=== PATIENT | female | born 1950 | race Caucasian/White ===

== ENCOUNTER 2016-12-11 15:00 | Outpatient (CLI) | payer MEDICARE | END 2016-12-11 15:01 | disposition home or self-care (01) | DX: N39.0 Urinary tract infection, site not specified (principal) ==

== ENCOUNTER 2017-07-06 15:00 | Outpatient (CLI) | payer MEDICARE | END 2017-07-06 15:01 | LOC: LAB.WCP 15:00 | PROVIDERS: ATTEND Family Medicine | DX: N39.0 Urinary tract infection, site not specified (principal) | CPT/HCPCS: 87086 ==

== ENCOUNTER 2017-12-15 18:29 | Outpatient (CLI) | payer MEDICARE | END 2017-12-15 18:30 | disposition critical access hospital (66) | LOC: EMS 18:29 | PROVIDERS: ATTEND Surgery | DX: R06.02 Shortness of breath (principal); R05 Cough; M54.9 Dorsalgia, unspecified | CPT/HCPCS: A0425; A0427 ==

== ENCOUNTER 2017-12-15 18:55 | Emergency (ER) | payer MEDICARE ==
[2017-12-15 19:35] LABS: BASOPHILS # (AUTO) 0.1 10^3/uL (0.0-0.1); BASOPHILS % (AUTO) 0.7 %; EOSINOPHILS # (AUTO) 0.1 10^3/uL (0.0-0.7); EOSINOPHILS % (AUTO) 1.7 %; HGB - HEMOGLOBIN 12.4 g/dL (12.0-16.0); LYMPHOCYTES # (AUTO) 0.9 10^3/uL (1.5-3.5); LYMPHOCYTES % (AUTO) 10.9 %; MEAN CORPUSCULAR HEMOGLOBIN 29.6 pg (27.0-31.0); MEAN CORPUSCULAR HGB CONC 32.2 g/dL (32.0-36.0); MEAN CORPUSCULAR VOLUME 91.9 fL (81.0-99.0); MEAN PLATELET VOLUME 8.6 fL (7.9-10.8); MONOCYTES # (AUTO) 0.5 10^3/uL (0.0-1.0); MONOCYTES % (AUTO) 6.5 %; NEUTROPHILS # (AUTO) 6.8 10^3/uL (1.5-6.6); NEUTROPHILS % (AUTO) 80.2 %; PLT - PLATELET COUNT 233 10^3/uL (130-450); RED CELL DISTRIBUTION WIDTH 14.3 % (12.0-15.0); WHITE BLOOD COUNT 8.5 x10^3/uL (4.8-10.8)
[2017-12-15 19:48] LABS: ALBUMIN 3.5 g/dL (3.2-5.5); ALBUMIN/GLOBULIN RATIO 1.1 (1.0-2.2); BILIRUBIN,TOTAL 1.7 mg/dL (0.2-1.0); CALCIUM 8.5 mg/dL (8.5-10.3); CREATININE 0.7 mg/dL (0.4-1.0); TOTAL PROTEIN 6.7 g/dL (6.7-8.2)
[2017-12-15] MEDS ORDERED: IPRATROPIUM/ALBUTEROL 3 ML NEB INH STA (20:09)
--- NOTE | 2017-12-15 20:40 | XRAY Report ---
EXAM: CHEST RADIOGRAPHY EXAM DATE: 12/15/2017 08:16 PM. CLINICAL HISTORY: Dyspnea. COMPARISON: 12/11/2016. TECHNIQUE: 1 view. FINDINGS: Lungs/Pleura: Mild diffuse hazy prominence of lung markings. No consolidation, effusion, or pneumotho rax. Mediastinum: Mild cardiomegaly, probably unchanged. Diffuse vascular fullness. Other: Permanent pacemaker on the left with intact leads. Osteopenia, degenerative changes. IMPRESSION: Mild congestive failure. [facility] Referring Provider Line: [phone] SITE ID: [id number]
[2017-12-15 21:29] VITALS: BP 116/78
--- NOTE | 2017-12-15 21:31 | ED Physician Documentation ---
PD HPI DYSPNEA - Stated complaint Stated Complaint: SOA - Chief complaint Chief Complaint: Resp - History obtained from History obtained from: Patient, Family - History of Present Illness Timing - onset: Yesterday Timing - onset during: Rest, Light activity Timing - details: Gradual onset, Still present Inciting event(s): URI Improved by: O2 Worsened by: Exertion, Laying flat, Coughing Associated symptoms: Cough, Wheezing. No: Fever Similar symptoms before: Work up / diagnostics Recently seen: Not recently seen - Treatment prior to arrival Treatment prior to arrival: nitro and lasix - Additional information Additional information: Patient is a 67 year old female with copd, who is presenting to the emergency department for shortness of breath. Patient states that she was recently diagnosed with copd after a 100 pack year history of smoking. Patient states that over the last week she has been more short of breath. patient states that the symptoms are worse when she lies flat or with exertion. Patient has not had an echocardiogram but she does have cardiology follow up coming up. Review of Systems Constitutional: denies: Fever, Chills Eyes: reports: Reviewed and negative Ears: reports: Reviewed and negative Nose: reports: Congestion Throat: reports: Reviewed and negative Cardiac: reports: Pedal edema. denies: Chest pain / pressure, Palpitations Respiratory: reports: Dyspnea, Wheezing GI: denies: Nausea, Vomiting Skin: denies: Rash, Lesions Musculoskeletal: reports: Back pain Neurologic: denies: Generalized weakness, Focal weakness Immunocompromised: denies: Immunocompromised PD PAST MEDICAL HISTORY - Past Medical History Past Medical History: Yes Cardiovascular: Hypertension Respiratory: COPD Psych: Depression - Past Surgical History Past Surgical History: Yes Cardiovascular: Pacemaker - Present Medications Home Medications: Ambulatory Orders Medication Instructions Recorded Confirmed Albuterol Sulfate [Proventil Hfa 1 - 2 puffs INH Q4H PRN #1 inhaler 12/15/17 Inhaler] Furosemide [Lasix] 40 mg PO DAILY #15 tablet 12/15/17 Metoprolol Tartrate 12/15/17 Nefazodone HCl 12/15/17 Potassium Chloride 40 meq PO DAILY #60 tablet.er 12/15/17 - Allergies Allergies/Adverse Reactions: Allergies Allergy/AdvReac Type Severity Reaction Status Date / Time tegaderm Allergy Mild Rash Uncoded 12/15/17 19:03 - Social History Does the pt smoke?: Yes Smoking Status: Current every day smoker Does the pt drink ETOH?: No Does the pt have substance abuse?: No - Immunizations Immunizations are current?: Yes PD ED PE NORMAL - General General: Alert and oriented X 3 - HEENT HEENT: Atraumatic - Neck Neck: No JVD - Abdomen Abdomen: Soft - Derm Derm: Normal color - Neuro Neuro: Alert and oriented X 3 PD ED PE EXPANDED - General General: Alert, Disheveled, poorly kept - HEENT HEENT: Dry mucous membranes - Cardiac Cardiac: Regular Rate. No: Murmur Present - Respiratory Respiratory: Wheezing, Rhonchi. No: Gasping, Accessory mm use - Extremities Extremities: Pedal edema bilateral (plus 1) Results - Vitals Vitals: Vital Signs - 24 hr 12/15/17 12/15/17 18:58 21:28 Temperature 36.8 C 36.0 C L Heart Rate 66 73 Respiratory 20 18 Rate Blood Pressure 129/79 116/78 O2 Saturation 91 L 95 Oxygen O2 Source Room air - Labs Labs: Laboratory Tests 12/15/17 12/15/17 12/15/17 19:28 19:28 19:28 WBC 8.5 RBC 4.20 Hgb 12.4 Hct 38.6 MCV 91.9 MCH 29.6 MCHC 32.2 RDW 14.3 Plt Count 233 MPV 8.6 Neut # 6.8 H Lymph # 0.9 L [place] # 0.5 Eos # 0.1 Baso # 0.1 Absolute Nucleated RBC 0.00 Nucleated RBC % 0.0 Sodium 135 Potassium 3.8 Chloride 101 Carbon Dioxide 27 Anion Gap 7.0 BUN 12 Creatinine 0.7 Estimated GFR (MDRD) 84 L Glucose 134 H Calcium 8.5 Total Bilirubin 1.7 H AST 40 ALT 45 Alkaline Phosphatase 84 Troponin I < 0.04 B-Natriuretic Peptide Total Protein 6.7 Albumin 3.5 Globulin 3.2 Albumin/Globulin Ratio 1.1 Lipase 15 L 12/15/17 19:28 WBC RBC Hgb Hct MCV MCH MCHC RDW Plt Count MPV Neut # Lymph # [place] # Eos # Baso # Absolute Nucleated RBC Nucleated RBC % Sodium Potassium Chloride Carbon Dioxide Anion Gap BUN Creatinine Estimated GFR (MDRD) Glucose Calcium Total Bilirubin AST ALT Alkaline Phosphatase Troponin I B-Natriuretic Peptide 536 H Total Protein Albumin Globulin Albumin/Globulin Ratio Lipase - Rads (name of study) chest x-ray Radiology: Final report received (mild pulmonary congestion) PD MEDICAL DECISION MAKING - ED course Complexity details: reviewed old records, reviewed results, re-evaluated patient , considered differential, d/w patient, d/w family ED course: Patient was seen and examined at bedside. IV access was gained and labs were drawn. Patient had already been treated with lasix and nitroglycerin with some improvement. chest x-ray was ordered. patient was treated with duoneb. When patient's diagnostics came back the findings were suggestive of chf. Patient was made aware of the findings and offered admission. patient stated that she would rather go home. Case was discussed with covering hospitalist who recommended lasix 40mg every other day, as well as potassium supplementation. prescriptions were written and patient was stable for discharge with outpatient follow up. Departure - Departure Disposition: Home, Self Care Clinical Impression: Moderate COPD (chronic obstructive pulmonary disease), Congestive heart failure Condition: Stable Instructions: COPD Dc, ED CHF General, Lasix Follow-Up: Tita Bryant MD [Primary Care Provider] - Tomorrow Prescriptions: Albuterol Sulfate [Proventil Hfa Inhaler] 1 - 2 puffs INH Q4H PRN #1 inhaler PRN Reason: Shortness Of Air/Wheezing Furosemide [Lasix] 40 mg PO DAILY #15 tablet Potassium Chloride 40 meq PO DAILY #60 tablet.er Comments: Your symptoms today are being caused by both your copd and it looks like you have congestive heart failure as well. You are being started on lasix that you will take every other day, as well as potassium that you will take every other day as well. it is important that you call your doctor to schedule and echocardiogram. You should also refrain from smoking as it is likely making all of your symptoms worse. You should return to the emergency department for new, worsening or uncontrollable symptoms. Discharge Date/Time: 12/15/17 21:38
== END 2017-12-15 21:38 | disposition home or self-care (01) ==
LOC: EDUNIT# → ED 18:55
DX: J44.9 Chronic obstructive pulmonary disease, unspecified (principal); I11.0 Hypertensive heart disease with heart failure; I50.9 Heart failure, unspecified; Z95.0 Presence of cardiac pacemaker; F32.9 Major depressive disorder, single episode, unspecified; F17.210 Nicotine dependence, cigarettes, uncomplicated
CPT/HCPCS: 36415; 71045; 80053; 83690; 83880; 84484; 85025; 93005; 94640; 99283; 99284

== ENCOUNTER 2017-12-27 14:35 | Outpatient (CLI) | payer MEDICARE ==
[2017-12-27 19:17] LABS: ALBUMIN 3.5 g/dL (3.2-5.5); ALBUMIN/GLOBULIN RATIO 1.1 (1.0-2.2); BILIRUBIN,TOTAL 0.8 mg/dL (0.2-1.0); CALCIUM 8.7 mg/dL (8.5-10.3); CREATININE 0.7 mg/dL (0.4-1.0); TOTAL PROTEIN 6.7 g/dL (6.7-8.2)
== END 2017-12-27 14:36 ==
LOC: LAB.WCP 14:35
PROVIDERS: ATTEND Family Medicine
DX: I50.9 Heart failure, unspecified (principal)
CPT/HCPCS: 36415; 80053; 83880

== ENCOUNTER 2018-02-07 08:00 | Outpatient (CLI) | payer MEDICARE ==
[2018-02-07 12:37] LABS: BASOPHILS # (AUTO) 0.1 10^3/uL (0.0-0.1); BASOPHILS % (AUTO) 0.6 %; EOSINOPHILS # (AUTO) 0.2 10^3/uL (0.0-0.7); EOSINOPHILS % (AUTO) 2.4 %; HGB - HEMOGLOBIN 12.3 g/dL (12.0-16.0); LYMPHOCYTES # (AUTO) 1.7 10^3/uL (1.5-3.5); LYMPHOCYTES % (AUTO) 21.4 %; MEAN CORPUSCULAR HEMOGLOBIN 30.5 pg (27.0-31.0); MEAN CORPUSCULAR HGB CONC 32.5 g/dL (32.0-36.0); MEAN PLATELET VOLUME 8.5 fL (7.9-10.8); MONOCYTES # (AUTO) 0.5 10^3/uL (0.0-1.0); NEUTROPHILS # (AUTO) 5.6 10^3/uL (1.5-6.6); NEUTROPHILS % (AUTO) 69.6 %; PLT - PLATELET COUNT 362 10^3/uL (130-450); RED BLOOD COUNT 4.03 10^6/uL (4.20-5.40); RED CELL DISTRIBUTION WIDTH 14.7 % (12.0-15.0); WHITE BLOOD COUNT 8.1 x10^3/uL (4.8-10.8)
[2018-02-07 12:44] LABS: ALBUMIN 3.1 g/dL (3.2-5.5); BILIRUBIN,TOTAL 0.7 mg/dL (0.2-1.0); CALCIUM 8.6 mg/dL (8.5-10.3); TOTAL PROTEIN 6.3 g/dL (6.7-8.2)
== END 2018-02-07 08:01 | disposition home or self-care (01) ==
LOC: LAB.WCP 08:00
PROVIDERS: ATTEND Family Medicine
DX: I50.9 Heart failure, unspecified (principal); R07.9 Chest pain, unspecified; J44.9 Chronic obstructive pulmonary disease, unspecified
CPT/HCPCS: 36415; 80053; 83880; 85025

== ENCOUNTER 2018-09-01 12:46 | Outpatient (CLI) | payer SELFPAY | END 2018-09-01 12:47 | disposition home or self-care (01) | LOC: EMS 12:46 | PROVIDERS: ATTEND Surgery | DX: R06.00 Dyspnea, unspecified (principal) ==

== ENCOUNTER 2019-01-09 12:18 | Outpatient (CLI) | payer MEDICARE | END 2019-01-09 12:19 | disposition EMS.NT | LOC: EMS 12:18 | PROVIDERS: ATTEND Surgery | DX: R11.0 Nausea (principal) ==

== ENCOUNTER 2019-04-27 14:38 | Outpatient (CLI) | payer MEDICARE ==
--- NOTE | 2019-04-28 15:26 | CT Report ---
Reason: NICOTINE ADDICTION Procedure Date: 04/27/2019 Accession Number: [id number] / [id number] Procedure: CT - Low Dose Lung Cancer Screen CPT Code: FULL RESULT: EXAM CT LUNG SCREEN EXAM DATE: 04/27/2019 02:55 PM. HISTORY: 69-year-old patient with 42-pehd-hepe smoking history. Currently smoking: Yes. COMPARISON: None. TECHNIQUE: CT examination of the entire thorax without contrast was performed using low-dose technique. Thin section coronal, axial, sagittal and MIP axial images were obtained. In accordance with CT protocol optimization, one or more of the following dose reduction techniques were utilized for this exam: automated exposure control, adjustment of mA and/or KV based on patient size, or use of iterative reconstructive technique. FINDINGS: Nodules: Right upper lobe: 4 mm nodule is seen in the apex (image 33/4). Right middle lobe: None. Right lower lobe: None. Left upper lobe: None. Left lower lobe: None. Emphysema: Minimal. Pleura: Unremarkable. Aorta: Unremarkable. Mediastinum: Left-sided cardiac implant with leads in the right atrium and right ventricular apex is seen. Coronary calcifications: Minimal. Other pulmonary findings: None. Other extrapulmonary findings: None. IMPRESSION: Lung-RADS ASSESSMENT CATEGORY: 2 - benign appearance or behavior. Probability of malignancy: Less than 1%. RECOMMENDATION: Routine low dose screening CT in 12 months. [facility]
== END 2019-04-27 14:39 | disposition home or self-care (01) ==
LOC: DI 14:38
PROVIDERS: ATTEND Family Medicine
DX: Z12.2 Encounter for screening for malignant neoplasm of respiratory organs (principal); Z87.891 Personal history of nicotine dependence

== ENCOUNTER 2019-07-16 16:12 | Outpatient (CLI) | payer MEDICARE | END 2019-07-16 16:13 | disposition critical access hospital (66) | LOC: EMS 16:12 | PROVIDERS: ATTEND Surgery | DX: R07.9 Chest pain, unspecified (principal) | CPT/HCPCS: A0425; A0427 ==

== ENCOUNTER 2019-07-16 16:37 | Emergency (ER) | payer MEDICARE ==
--- NOTE | 2019-07-16 17:04 | ED Physician Documentation ---
PD HPI CHEST PAIN - Stated complaint Stated Complaint: CP - Chief complaint Chief Complaint: Cardiac - History obtained from History obtained from: Patient, EMS - History of Present Illness Timing - details: Intermittant Pain level max: 5 Pain level now: 0 Quality: Pain. No: Pressure, Tightness, Aching, Sharp, Tearing, Dull, Stabbing, Throbbing, Indigestion, Like prior ACS Location: Substernal Radiation: No: Jaw, Neck, Back, Abdominal, Left upper extremity, Right upper extremity Improved by: Nothing Worsened by: Movement, Palpation Associated symptoms: Nausea. No: Shortness of air, Diaphoresis, Vomiting, Feeling faint / dizzy, General Weakness, Palpitations, Cough Recently seen: Not recently seen - Additional information Additional information: 69-year-old female states she has had chest pain for the past 3 to 4 days. She states that it comes and goes. She states that lasts 15 to 20 minutes at a time. Nothing makes it better or worse. She is currently asymptomatic. She denies any fevers, vomiting, shortness of breath. Review of Systems Constitutional: denies: Fever, Chills Nose: denies: Rhinorrhea / runny nose, Congestion Throat: denies: Sore throat Cardiac: denies: Palpitations Respiratory: denies: Dyspnea, Cough, Wheezing GI: denies: Abdominal Pain, Vomiting, Diarrhea Skin: denies: Rash Musculoskeletal: denies: Neck pain, Back pain Neurologic: denies: Headache PD PAST MEDICAL HISTORY - Past Medical History Cardiovascular: Hypertension Respiratory: COPD Psych: Depression - Past Surgical History Past Surgical History: Yes Cardiovascular: Pacemaker - Present Medications Home Medications: Ambulatory Orders Medication Instructions Recorded Confirmed Albuterol Sulfate [Proventil Hfa 1 - 2 puffs INH Q4H PRN #1 inhaler 12/15/17 Inhaler] Furosemide [Lasix] 40 mg PO DAILY #15 tablet 12/15/17 Metoprolol Tartrate 12/15/17 Nefazodone HCl 12/15/17 Potassium Chloride 40 meq PO DAILY #60 tablet.er 12/15/17 - Allergies Allergies/Adverse Reactions: Allergies Allergy/AdvReac Type Severity Reaction Status Date / Time tegaderm Allergy Mild Rash Uncoded 07/16/19 16:47 - Social History Does the pt smoke?: Yes Smoking Status: Current every day smoker Does the pt drink ETOH?: No Does the pt have substance abuse?: No - Immunizations Immunizations are current?: Yes PD ED PE NORMAL - Vitals Vital signs reviewed: Yes - General General: Alert and oriented X 3, No acute distress, Well developed/nourished - HEENT HEENT: PERRL, Ears normal, Moist mucous membranes, Pharynx benign - Neck Neck: Supple, no meningeal sign - Cardiac Cardiac: RRR, Strong equal pulses - Respiratory Respiratory: No respiratory distress, Clear bilaterally - Abdomen Abdomen: Soft, Non tender, Non distended - Derm Derm: Warm and dry - Extremities Extremities: No edema, No calf tenderness / cord - Neuro Neuro: Alert and oriented X 3 - Psych Psych: Normal mood, Normal affect - Free text exam Free text exam: Tender to palpation across the anterior chest wall. Reproduces her pain. Worse with moving the arms as well. Results - Vitals Vitals: Vital Signs - 24 hr 07/16/19 07/16/19 07/16/19 16:43 19:06 20:02 Temperature 36.3 C L Heart Rate 86 101 H 104 H Respiratory 16 17 16 Rate Blood Pressure 115/93 H 114/81 H 111/71 O2 Saturation 93 93 92 Oxygen O2 Source Room air - EKG (time done) 1644 Rate: Rate (enter#) (115) Rhythm: Atrial fibrillation [place]: Normal QRS: Normal Ischemia: Normal ST segments - Labs Labs: Laboratory Tests 07/16/19 07/16/19 07/16/19 17:00 17:00 17:00 WBC 5.9 RBC 4.31 Hgb 12.8 Hct 41.1 MCV 95.4 MCH 29.7 MCHC 31.1 L RDW 15.6 H Plt Count 265 MPV 10.3 Neut # (Auto) 3.8 Lymph # (Auto) 1.5 [place] # (Auto) 0.3 Eos # (Auto) 0.1 Baso # (Auto) 0.0 Absolute Nucleated RBC 0.00 Nucleated RBC % 0.0 Sodium 139 Potassium 4.4 Chloride 104 Carbon Dioxide 29 Anion Gap 6.0 BUN 12 Creatinine 0.7 Estimated GFR (MDRD) 83 L Glucose 145 H Calcium 8.9 Total Bilirubin 1.3 H AST 47 H ALT 65 H Alkaline Phosphatase 79 Troponin I High Sens 72.8 H* Total Protein 6.1 L Albumin 3.4 Globulin 2.7 Albumin/Globulin Ratio 1.3 Lipase 23 12/08/19 19:12 WBC RBC Hgb Hct MCV MCH MCHC RDW Plt Count MPV Neut # (Auto) Lymph # (Auto) [place] # (Auto) Eos # (Auto) Baso # (Auto) Absolute Nucleated RBC Nucleated RBC % Sodium Potassium Chloride Carbon Dioxide Anion Gap BUN Creatinine Estimated GFR (MDRD) Glucose Calcium Total Bilirubin AST ALT Alkaline Phosphatase Troponin I High Sens 69.4 H* Total Protein Albumin Globulin Albumin/Globulin Ratio Lipase - Rads (name of study) cxr Radiology: Prelim report reviewed, EMP read contemporaneously, See rad report (no acute abnormalities) PD MEDICAL DECISION MAKING - ED course Complexity details: reviewed results, re-evaluated patient, considered differential, d/w patient ED course: Patient presents to the emergency department with chest pain for the past 4 days. No acute findings on EKG. Her high-sensitivity troponin is mildly elevated, but no change on repeat. The repeat is actually slightly decreased. Likely that this is a chronic elevation for her. There are no prior high- sensitivity troponins here. She is asymptomatic here. She request to go home at this time. We will have her follow-up with her doctor with further care including a potential cardiac stress test. Patient and family counseled regarding signs and symptoms for which I believe and urgent re-evaluation would be necessary. Patient with good understanding of and agreement to plan and is comfortable going home at this time This document was made in part using voice recognition software. While efforts are made to proofread this document, sound alike and grammatical errors may occur. Departure - Departure Disposition: 01 Home, Self Care Clinical Impression: Atrial fibrillation Qualifiers: Atrial fibrillation type: unspecified Qualified Code(s): I48.91 - Unspecified atrial fibrillation Chest pain Qualifiers: Chest pain type: unspecified Qualified Code(s): R07.9 - Chest pain, unspecified Condition: Good Instructions: ED Chest Pain Atypical Unkn Cause Follow-Up: Moiz Abreu DO [Primary Care Provider] - Within 1 week Comments: The cause of your symptoms is unclear, but you do seem to be tender in the muscles of your chest wall. This does not appear to be related to your heart tonight. You should have a cardiac stress test with your doctor. Return if you worsen Discharge Date/Time: 07/16/19 20:13
[2019-07-16 17:05] LABS: BASOPHILS % (AUTO) 0.7 %; EOSINOPHILS # (AUTO) 0.1 10^3/uL (0.0-0.7); EOSINOPHILS % (AUTO) 2.1 %; HGB - HEMOGLOBIN 12.8 g/dL (12.0-16.0); LYMPHOCYTES # (AUTO) 1.5 10^3/uL (1.5-3.5); LYMPHOCYTES % (AUTO) 26.2 %; MEAN CORPUSCULAR HEMOGLOBIN 29.7 pg (27.0-31.0); MEAN CORPUSCULAR HGB CONC 31.1 g/dL (32.0-36.0); MEAN CORPUSCULAR VOLUME 95.4 fL (81.0-99.0); MEAN PLATELET VOLUME 10.3 fL (7.9-10.8); MONOCYTES # (AUTO) 0.3 10^3/uL (0.0-1.0); MONOCYTES % (AUTO) 5.5 %; NEUTROPHILS # (AUTO) 3.8 10^3/uL (1.5-6.6); PLT - PLATELET COUNT 265 10^3/uL (130-450); RED BLOOD COUNT 4.31 10^6/uL (4.20-5.40); RED CELL DISTRIBUTION WIDTH 15.6 % (12.0-15.0); WHITE BLOOD COUNT 5.9 x10^3/uL (4.8-10.8)
[2019-07-16 17:17] LABS: ALBUMIN 3.4 g/dL (3.2-5.5); ALBUMIN/GLOBULIN RATIO 1.3 (1.0-2.2); BILIRUBIN,TOTAL 1.3 mg/dL (0.2-1.0); CALCIUM 8.9 mg/dL (8.5-10.3); CREATININE 0.7 mg/dL (0.4-1.0); TOTAL PROTEIN 6.1 g/dL (6.7-8.2)
--- NOTE | 2019-07-16 17:36 | XRAY Report ---
Reason: Chest Pain Procedure Date: 07/16/2019 Accession Number: [id number] / [id number] Procedure: XR - Chest 1 View X-Ray CPT Code: 66518 Final Report FULL RESULT: EXAM: CHEST RADIOGRAPHY EXAM DATE: 07/16/2019 05:02 PM. CLINICAL HISTORY: Chest pain. COMPARISON: CHEST 1 VIEW 12/15/2017 8:06 PM. TECHNIQUE: 1 view. FINDINGS: Lungs/Pleura: No focal opacities evident. No pleural effusion. No pneumothorax. Mediastinum: Within exam limitations, the cardiomediastinal contour is normal. Other: Dual-chamber pacemaker again noted. IMPRESSION: Unremarkable single view chest. [facility]
[2019-07-16 20:04] VITALS: BP 111/71
== END 2019-07-16 20:13 | disposition home or self-care (01) ==
LOC: EDUNIT# → ED 16:37
DX: I48.91 Unspecified atrial fibrillation (principal); R07.89 Other chest pain; I10 Essential (primary) hypertension; F17.200 Nicotine dependence, unspecified, uncomplicated
CPT/HCPCS: 36415; 71045; 80053; 83690; 84484; 85025; 93005; 99284

== ENCOUNTER 2019-07-31 08:00 | Outpatient (CLI) | payer MEDICARE | END 2019-07-31 23:59 | disposition home or self-care (01) | LOC: LAB.WCP 08:00 | PROVIDERS: ATTEND Nurse Practitioner Family | DX: Z79.01 Long term (current) use of anticoagulants (principal); I48.91 Unspecified atrial fibrillation ==

== ENCOUNTER 2019-08-14 08:00 | Outpatient (CLI) | payer MEDICARE ==
[2019-08-14 18:36] LABS: BASOPHILS # (AUTO) 0.1 10^3/uL (0.0-0.1); EOSINOPHILS # (AUTO) 0.1 10^3/uL (0.0-0.7); EOSINOPHILS % (AUTO) 2.2 %; HGB - HEMOGLOBIN 13.7 g/dL (12.0-16.0); LYMPHOCYTES # (AUTO) 0.9 10^3/uL (1.5-3.5); LYMPHOCYTES % (AUTO) 13.7 %; MEAN CORPUSCULAR HEMOGLOBIN 30.5 pg (27.0-31.0); MEAN CORPUSCULAR VOLUME 98.4 fL (81.0-99.0); MEAN PLATELET VOLUME 10.7 fL (7.9-10.8); MONOCYTES # (AUTO) 0.6 10^3/uL (0.0-1.0); MONOCYTES % (AUTO) 8.9 %; NEUTROPHILS # (AUTO) 4.6 10^3/uL (1.5-6.6); NEUTROPHILS % (AUTO) 73.9 %; PLT - PLATELET COUNT 337 10^3/uL (130-450); RED BLOOD COUNT 4.49 10^6/uL (4.20-5.40); RED CELL DISTRIBUTION WIDTH 14.9 % (12.0-15.0); WHITE BLOOD COUNT 6.3 x10^3/uL (4.8-10.8)
[2019-08-14 19:06] LABS: ALBUMIN 3.6 g/dL (3.2-5.5); ALBUMIN/GLOBULIN RATIO 1.2 (1.0-2.2); BILIRUBIN,TOTAL 1.4 mg/dL (0.2-1.0); CALCIUM 8.8 mg/dL (8.5-10.3); CREATININE 0.7 mg/dL (0.4-1.0); TOTAL PROTEIN 6.7 g/dL (6.7-8.2)
== END 2019-08-14 23:59 | disposition home or self-care (01) ==
LOC: LAB.WCP 08:00
PROVIDERS: ATTEND Family Medicine
DX: I48.91 Unspecified atrial fibrillation (principal); I34.0 Nonrheumatic mitral (valve) insufficiency; R06.09 Other forms of dyspnea
CPT/HCPCS: 36415; 80053; 83880; 84443; 85025

== ENCOUNTER 2019-09-19 08:00 | Outpatient (CLI) | payer MEDICARE | END 2019-09-19 23:59 | disposition home or self-care (01) | LOC: LAB.WCP 08:00 | PROVIDERS: ATTEND Family Medicine | DX: I48.91 Unspecified atrial fibrillation (principal); Z79.01 Long term (current) use of anticoagulants ==

== ENCOUNTER 2019-09-26 08:00 | Outpatient (CLI) | payer MEDICARE | END 2019-09-26 23:59 | disposition home or self-care (01) | LOC: LAB.WCP 08:00 | PROVIDERS: ATTEND Family Medicine | DX: Z79.01 Long term (current) use of anticoagulants (principal); I48.91 Unspecified atrial fibrillation ==

== ENCOUNTER 2019-10-20 08:00 | Outpatient (CLI) | payer MEDICARE | END 2019-10-20 23:59 | disposition home or self-care (01) | LOC: LAB.WCP 08:00 | PROVIDERS: ATTEND Family Medicine | DX: I48.91 Unspecified atrial fibrillation (principal); Z79.01 Long term (current) use of anticoagulants ==

== ENCOUNTER 2019-11-16 08:00 | Outpatient (CLI) | payer MEDICARE | END 2019-11-16 23:59 | disposition home or self-care (01) | LOC: LAB.WCP 08:00 | PROVIDERS: ATTEND Family Medicine | DX: I48.91 Unspecified atrial fibrillation (principal); Z79.01 Long term (current) use of anticoagulants ==

== ENCOUNTER 2019-11-30 08:00 | Outpatient (CLI) | payer MEDICARE | END 2019-11-30 23:59 | disposition home or self-care (01) | LOC: LAB.WCP 08:00 | PROVIDERS: ATTEND Family Medicine | DX: I48.91 Unspecified atrial fibrillation (principal); Z79.01 Long term (current) use of anticoagulants ==

== ENCOUNTER 2019-12-12 08:00 | Outpatient (CLI) | payer MEDICARE | END 2019-12-12 23:59 | disposition home or self-care (01) | LOC: LAB.WCP 08:00 | PROVIDERS: ATTEND Family Medicine | DX: I48.91 Unspecified atrial fibrillation (principal); Z79.01 Long term (current) use of anticoagulants ==

== ENCOUNTER 2019-12-22 14:47 | Outpatient (CLI) | payer MEDICARE ==
[2019-12-22 18:52] LABS: CALCIUM 8.8 mg/dL (8.5-10.3); CREATININE 0.7 mg/dL (0.4-1.0)
== END 2019-12-22 23:59 | disposition home or self-care (01) ==
LOC: LAB.WCP 14:47
PROVIDERS: ATTEND Physician Assistant
DX: I48.0 Paroxysmal atrial fibrillation (principal)
CPT/HCPCS: 36415; 80048

== ENCOUNTER 2020-01-26 08:00 | Outpatient (CLI) | payer MEDICARE | END 2020-01-26 23:59 | disposition home or self-care (01) | LOC: LAB.WCP 08:00 | PROVIDERS: ATTEND Family Medicine | DX: I48.91 Unspecified atrial fibrillation (principal); Z79.01 Long term (current) use of anticoagulants ==

== ENCOUNTER 2020-02-12 08:00 | Outpatient (CLI) | payer MEDICARE | END 2020-02-12 23:59 | disposition home or self-care (01) | LOC: LAB.WCP 08:00 | PROVIDERS: ATTEND Family Medicine | DX: I48.91 Unspecified atrial fibrillation (principal); Z79.01 Long term (current) use of anticoagulants ==

== ENCOUNTER 2020-03-18 08:00 | Outpatient (CLI) | payer MEDICARE | END 2020-03-18 23:59 | disposition home or self-care (01) | LOC: LAB.WCP 08:00 | PROVIDERS: ATTEND Family Medicine | DX: I48.91 Unspecified atrial fibrillation (principal); Z79.01 Long term (current) use of anticoagulants ==

== ENCOUNTER 2020-04-09 08:00 | Outpatient (CLI) | payer MEDICARE | END 2020-04-09 23:59 | disposition home or self-care (01) | LOC: LAB.WCP 08:00 | PROVIDERS: ATTEND Family Medicine | DX: I48.91 Unspecified atrial fibrillation (principal); Z79.01 Long term (current) use of anticoagulants ==

== ENCOUNTER 2020-04-16 08:00 | Outpatient (CLI) | payer MEDICARE | END 2020-04-16 23:59 | disposition home or self-care (01) | LOC: LAB.WCP 08:00 | PROVIDERS: ATTEND Family Medicine | DX: I48.91 Unspecified atrial fibrillation (principal); Z79.01 Long term (current) use of anticoagulants ==

== ENCOUNTER 2020-05-21 16:14 | Outpatient (CLI) | payer MEDICARE ==
--- NOTE | 2020-05-21 16:16 | XRAY Report ---
PROCEDURE: Chest 2 View X-Ray INDICATIONS: RIGHT SIDE CHEST PAIN TECHNIQUE: 2 view(s) of the chest. COMPARISON: 18 FINDINGS: Surgical changes and devices: Left-sided pacer. Median sternotomy. Lungs and pleura: No pleural effusions or pneumothorax. Lungs are clear. Mediastinum: Mediastinal contours are normal. Heart size is normal. Bones and chest wall: No suspicious bony abnormalities. Soft tissues appear unremarkable. IMPRESSION: No acute process. Reviewed by: Dea Medrano MD on 05/21/2020 4:15 PM PDT Approved by: Dea Medrano MD on 05/21/2020 4:15 PM PDT Station ID: [id number]
== END 2020-05-21 23:59 | disposition home or self-care (01) ==
LOC: DI.WCP 16:14
PROVIDERS: ATTEND Family Medicine
DX: R07.89 Other chest pain (principal)
CPT/HCPCS: 71046

== ENCOUNTER 2020-07-03 08:00 | Outpatient (CLI) | payer MEDICARE | END 2020-07-03 23:59 | disposition home or self-care (01) | LOC: LAB.WCP 08:00 | PROVIDERS: ATTEND Family Medicine | DX: Z79.01 Long term (current) use of anticoagulants (principal) ==

== ENCOUNTER 2020-07-17 08:00 | Outpatient (CLI) | payer MEDICARE | END 2020-07-17 23:59 | disposition home or self-care (01) | LOC: LAB.WCP 08:00 | PROVIDERS: ATTEND Family Medicine | DX: Z79.01 Long term (current) use of anticoagulants (principal) ==

== ENCOUNTER 2020-08-14 08:00 | Outpatient (CLI) | payer MEDICARE | END 2020-08-14 23:59 | disposition home or self-care (01) | LOC: LAB.WCP 08:00 | PROVIDERS: ATTEND Family Medicine | DX: Z79.01 Long term (current) use of anticoagulants (principal) ==

== ENCOUNTER 2020-08-19 08:00 | Outpatient (CLI) | payer MEDICARE | END 2020-08-19 23:59 | disposition home or self-care (01) | LOC: LAB.N 08:00 | PROVIDERS: ATTEND Family Medicine | DX: Z79.01 Long term (current) use of anticoagulants (principal) ==

== ENCOUNTER 2020-08-21 08:00 | Outpatient (CLI) | payer MEDICARE | END 2020-08-21 23:59 | disposition home or self-care (01) | LOC: LAB.WCP 08:00 | PROVIDERS: ATTEND Family Medicine | DX: Z79.01 Long term (current) use of anticoagulants (principal) ==

== ENCOUNTER 2020-08-26 08:00 | Outpatient (CLI) | payer MEDICARE | END 2020-08-26 23:59 | disposition home or self-care (01) | LOC: LAB.N 08:00 | PROVIDERS: ATTEND Family Medicine | DX: Z79.01 Long term (current) use of anticoagulants (principal) ==

== ENCOUNTER 2020-09-02 08:00 | Outpatient (CLI) | payer MEDICARE | END 2020-09-02 23:59 | disposition home or self-care (01) | LOC: LAB.WCP 08:00 | PROVIDERS: ATTEND Family Medicine | DX: Z79.01 Long term (current) use of anticoagulants (principal) ==

== ENCOUNTER 2020-09-23 08:00 | Outpatient (CLI) | payer MEDICARE | END 2020-09-23 23:59 | disposition home or self-care (01) | LOC: LAB.N 08:00 | PROVIDERS: ATTEND Family Medicine | DX: I48.91 Unspecified atrial fibrillation (principal); Z95.2 Presence of prosthetic heart valve; Z79.01 Long term (current) use of anticoagulants ==

== ENCOUNTER 2020-10-01 16:17 | Emergency (ER) | payer MEDICARE ==
[2020-10-01 16:40] VITALS: BP 147/88
--- NOTE | 2020-10-01 16:58 | ED Physician Documentation ---
History of Present Illness - Stated complaint Stated Complaint: RT ANKLE INJ - Chief complaint Chief Complaint: Ext Problem - Additonal information Additional information: 70-year-old female presents the emergency department for evaluation of right ankle pain that began 1 week ago when she fell in the snow. She is anticoagulated on Coumadin secondary to a history of mitral valve replacement. She did hit her head but did not have any loss of consciousness. She denies any headaches vomiting or vision changes since the fall. She does have a superficial bruise that appears to be healing on her left forehead. Since the fall she has had difficulty bearing weight and the lateral ankle is quite swollen and ecchymotic. No history of previous injury to this leg. Denies chest pain back pain Review of Systems Constitutional: denies: Fever, Chills Eyes: denies: Loss of vision, Decreased vision, Photophobia Ears: reports: Reviewed and negative Nose: reports: Reviewed and negative Throat: reports: Reviewed and negative Cardiac: denies: Chest pain / pressure, Palpitations Respiratory: denies: Dyspnea, Cough GI: denies: Abdominal Pain, Nausea, Vomiting : denies: Dysuria, Frequency, Hesitancy Skin: reports: Other (ecchymosis right ankle, left forehead). 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 : None HEENT: Chronic vision loss Psych: Depression Musculoskeletal: None Derm: None - Past Surgical History Past Surgical History: Yes Cardiovascular: Pacemaker - Present Medications Home Medications: Ambulatory Orders Medication Instructions Recorded Confirmed Albuterol Sulfate [Proventil Hfa 1 - 2 puffs INH Q4H PRN #1 inhaler 12/15/17 Inhaler] Furosemide [Lasix] 40 mg PO DAILY #15 tablet 12/15/17 Metoprolol Tartrate 12/15/17 Nefazodone HCl 12/15/17 Potassium Chloride 40 meq PO DAILY #60 tablet.er 12/15/17 HYDROcod/ACETAM 5/325 [[place]ira 5/325] 1 ea PO TID #5 10/01/20 - Allergies Allergies/Adverse Reactions: Allergies Allergy/AdvReac Type Severity Reaction Status Date / Time acetaminophen [From Percocet] Allergy Unknown Verified 10/01/20 16:40 adhesive Allergy Unknown Verified 10/01/20 16:40 oxycodone [From Percocet] Allergy Unknown Verified 10/01/20 16:40 tegaderm Allergy Mild Rash Uncoded 10/01/20 16:40 - Social History Does the pt smoke?: Yes Smoking Status: Current every day smoker Does the pt drink ETOH?: No Does the pt have substance abuse?: No - Immunizations Immunizations are current?: Yes PD ED PE EXPANDED - General General: Alert, No acute distress, Other (obese) - Cardiac Cardiac: Regular Rate, Regular Rhythm, Murmur Present, Radial strong equal, Pedal strong equal, Cap refill < 2 sec - Respiratory Respiratory: Clear to ausultation beatriz. No: Distress, Labored - Derm Derm: Bruising (Left forehead right ankle) - Extremities Extremities: Right ankle (Swelling and ecchymosis right lateral malleolus. Tenderness to pressure right lateral malleolus. Full range of motion, inversion and eversion of the right ankle. No pain on the dorsum or ventral portion of the foot. No pain over the fifth navicular bone.) Results - Vitals Vitals: Vital Signs - 24 hr 10/01/20 16:32 Temperature 36.6 C Heart Rate 72 Respiratory 19 Rate Blood Pressure 147/88 H O2 Saturation 96 Oxygen O2 Source Room air - Labs Labs: Laboratory Tests 10/01/20 17:09 Whole Blood INR 1.5 H - Rads (name of study) right ankle Radiology: Final report received (Minimally displaced fracture involving the distal tip of the right fibula. Ankle mortise is preserved.) CT head Radiology: Final report received (No acute intracranial process) PD MEDICAL DECISION MAKING - ED course Complexity details: reviewed results, re-evaluated patient, d/w patient ED course: 70-year-old female presents emergency department with approximately 1 week of right ankle pain after slipping in the snow. She also struck the left side of her head. She is anticoagulated on Coumadin secondary to history of mitral valve replacement. INR today is 1.5 subtherapeutic. Patient notified of this and advised to follow-up with her Coumadin clinic but also to take an extra dose of Coumadin this evening. CT of the head shows no acute process. X-ray of the right ankle does show a distal right fibular fracture. No other associated injury. Patient was placed in a walking boot and given a walker. This was a safer mode of ambulation then crutches alone. She reports that she will follow-up with orthopedic surgeon Dr. Barrett in [place] in 10 days to 2 weeks. Emergent return precautions were discussed. Departure - Departure Disposition: 01 Home, Self Care Clinical Impression: Fall from ground level, Anticoagulated on Coumadin Closed right fibular fracture Qualifiers: Encounter type: initial encounter Fibula location: distal physis (incl. [place]- Cast) Qualified Code(s): S89.301A - Unspecified physeal fracture of lower end of right fibula, initial encounter for closed fracture Condition: Stable Record reviewed to determine appropriate education?: Yes Instructions: ED Fx Lower Ext Prescriptions: HYDROcod/ACETAM 5/325 [[place] 5/325] 1 ea PO TID #5 Comments: Leela as we discussed you were seen for a right ankle injury. Unfortunately the x-ray does show a distal fibula fracture. This is the type of fracture that is likely to heal with no surgical intervention over the long-term. Please wear your walking boot at all times with the exception of when you shower. I have also prescribed a walker to help you with ambulation. Typically with fibula fractures of your type you can gently bear weight as tolerated on the ankle. Continue to ice it and wrap it. I have prescribed a very limited amount of hydrocodone. Use this with caution it is addictive and does make you more prone to falls. Please continue to follow-up with your orthopedic physician Dr. Barrett in [place] for long-term evaluation. Your INR today was 1.5. This is subtherapeutic for your mitral valve repair. I do advise that you take an extra dose of the Coumadin tonight. 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 Return to the emergency department for fevers, worsening pain shortness of breath confusion or any other falls.
--- NOTE | 2020-10-01 17:14 | XRAY Report ---
PROCEDURE: Ankle 3 View RT INDICATIONS: pain TECHNIQUE: 3 views of the ankle were acquired. COMPARISON: None FINDINGS: Bones: There is a minimally displaced fracture involving the distal tip of the right fibula. Osseous structures appear normally aligned. Degenerative changes of the tibiotalar and midfoot are noted. A nkle mortise is normally aligned. No suspicious bony lesions. Diffuse osteopenia. Small plantar sourav caneal spur. Soft tissues: Moderate lateral malleolar soft tissue swelling. No tibiotalar joint effusion. Achill es tendon appears normal. IMPRESSION: Minimally displaced fracture involving the distal tip of the right fibula. Ankle mortise is preserved. Reviewed by: Mo Cuello MD on 10/01/2020 5:13 PM PST Approved by: Mo Cuello MD on 10/01/2020 5:13 PM PST Station ID: [id number]
--- NOTE | 2020-10-01 17:47 | CT Report ---
PROCEDURE: HEAD WO INDICATIONS: fall 1 week ago; on coumadin TECHNIQUE: Noncontrast 4.5 mm thick angled axial sections acquired from the foramen magnum to the vertex. For r adiation dose reduction, the following was used: automated exposure control, adjustment of mA and/or kV according to patient size. COMPARISON: None. FINDINGS: Image quality: Excellent. CSF spaces: Basal cisterns are patent. No extra-axial fluid collections. Ventricles are normal in size and shape. Brain: No midline shift. No intracranial masses or hemorrhage. Sanchez-white matter interface is norm al. Skull and face: Calvarium and visualized facial bones are intact, without suspicious lesions. Sinuses: Visualized sinuses and mastoids are clear. IMPRESSION: 1. No acute intracranial process. Reviewed by: Rose Aguila MD on 10/01/2020 4:45 PM [facility] Approved by: Rose Aguila MD on 10/01/2020 4:45 PM [facility] Station ID: [id number]
== END 2020-10-01 18:21 | disposition home or self-care (01) ==
LOC: ED 16:17
DX: S89.301A Unspecified physeal fracture of lower end of right fibula, initial encounter for closed fracture (principal); W00.9XXA Unspecified fall due to ice and snow, initial encounter; Z79.01 Long term (current) use of anticoagulants; F17.200 Nicotine dependence, unspecified, uncomplicated
CPT/HCPCS: 85610; 99283; 99284

== ENCOUNTER 2020-10-30 08:00 | Outpatient (CLI) | payer MEDICARE | END 2020-10-30 23:59 | disposition home or self-care (01) | LOC: LAB.N 08:00 | PROVIDERS: ATTEND Family Medicine | DX: I48.91 Unspecified atrial fibrillation (principal); Z79.01 Long term (current) use of anticoagulants ==

== ENCOUNTER 2020-11-05 08:00 | Outpatient (CLI) | payer MEDICARE ==
[2020-11-05 17:43] LABS: BASOPHILS # (AUTO) 0.1 10^3/uL (0.0-0.1); BASOPHILS % (AUTO) 0.7 %; EOSINOPHILS # (AUTO) 0.2 10^3/uL (0.0-0.7); EOSINOPHILS % (AUTO) 2.6 %; HCT - HEMATOCRIT 46.3 % (37.0-47.0); HGB - HEMOGLOBIN 14.5 g/dL (12.0-16.0); LYMPHOCYTES % (AUTO) 28.9 %; MEAN CORPUSCULAR HEMOGLOBIN 30.1 pg (27.0-31.0); MEAN CORPUSCULAR HGB CONC 31.3 g/dL (32.0-36.0); MEAN CORPUSCULAR VOLUME 96.3 fL (81.0-99.0); MEAN PLATELET VOLUME 10.6 fL (7.9-10.8); MONOCYTES # (AUTO) 0.4 10^3/uL (0.0-1.0); MONOCYTES % (AUTO) 6.4 %; NEUTROPHILS # (AUTO) 4.2 10^3/uL (1.5-6.6); NEUTROPHILS % (AUTO) 61.3 %; PLT - PLATELET COUNT 242 10^3/uL (130-450); RED BLOOD COUNT 4.81 10^6/uL (4.20-5.40); RED CELL DISTRIBUTION WIDTH 13.6 % (12.0-15.0); WHITE BLOOD COUNT 6.9 x10^3/uL (4.8-10.8)
[2020-11-05 18:17] LABS: ALBUMIN 3.9 g/dL (3.2-5.5); ALBUMIN/GLOBULIN RATIO 1.3 (1.0-2.2); ALKALINE PHOSPHATASE 84 IU/L (42-121); ALT ALANINE AMINOTRANSFERASE 25 IU/L (10-60); AST ASPARTATE AMINOTRANSFERASE 24 IU/L (10-42); BUN - BLOOD UREA NITROGEN 13 mg/dL (6-20); CALCIUM 9.1 mg/dL (8.5-10.3); CARBON DIOXIDE - CO2 30 mmol/L (21-32); CHLORIDE 100 mmol/L (101-111); CHOL/HDL RATIO 3.7 (<4.4); CHOLESTEROL 201 mg/dL; CREATININE 0.7 mg/dL (0.4-1.0); GFR - MDRD 83 (>89); GLUCOSE 119 mg/dL (70-100); HDL CHOLESTEROL 55 mg/dL; LDL CHOLESTEROL,CALCULATED 115 mg/dL; LDL/HDL RATIO 2.1 (<4.4); POTASSIUM 4.3 mmol/L (3.5-5.0); SODIUM 137 mmol/L (135-145); TRIGLYCERIDES 155 mg/dL; VLDL CHOLESTEROL 31 mg/dL
[2020-11-05 18:18] LABS: THYROID STIMULATING HORMONE 3.48 uIU/mL (0.34-5.60)
== END 2020-11-05 23:59 | disposition home or self-care (01) ==
LOC: LAB.WCP 08:00
PROVIDERS: ATTEND Family Medicine
DX: I48.91 Unspecified atrial fibrillation (principal)
CPT/HCPCS: 36415; 80053; 80061; 83721; 84443; 85025

== ENCOUNTER 2020-11-20 08:00 | Outpatient (CLI) | payer MEDICARE | END 2020-11-20 23:59 | disposition home or self-care (01) | LOC: LAB.WCP 08:00 | PROVIDERS: ATTEND Physician Assistant | DX: I48.91 Unspecified atrial fibrillation (principal); Z95.2 Presence of prosthetic heart valve; Z79.01 Long term (current) use of anticoagulants ==

== ENCOUNTER 2020-11-27 08:00 | Outpatient (CLI) | payer MEDICARE | END 2020-11-27 23:59 | disposition home or self-care (01) | LOC: LAB.WCP 08:00 | PROVIDERS: ATTEND Family Medicine | DX: I48.91 Unspecified atrial fibrillation (principal); Z79.01 Long term (current) use of anticoagulants ==

== ENCOUNTER 2020-12-20 08:00 | Outpatient (CLI) | payer MEDICARE | END 2020-12-20 23:59 | disposition home or self-care (01) | LOC: LAB.WCP 08:00 | PROVIDERS: ATTEND Family Medicine | DX: I48.91 Unspecified atrial fibrillation (principal); Z79.01 Long term (current) use of anticoagulants ==

== ENCOUNTER 2021-01-03 08:00 | Outpatient (CLI) | payer MEDICARE | END 2021-01-03 23:59 | disposition home or self-care (01) | LOC: LAB.WCP 08:00 | PROVIDERS: ATTEND Family Medicine | DX: I48.91 Unspecified atrial fibrillation (principal); Z95.2 Presence of prosthetic heart valve; Z79.01 Long term (current) use of anticoagulants ==

== ENCOUNTER 2021-02-04 17:27 | Outpatient (CLI) | payer MEDICARE ==
--- NOTE | 2021-02-05 10:19 | XRAY Report ---
PROCEDURE: Hips 2V BILAT INDICATIONS: BILATERAL HIP PX TECHNIQUE: 2 views of the right and left hip were acquired. COMPARISON: 10/05/2014. FINDINGS: Bones: No fractures or dislocations. No suspicious bony lesions. The visualized pelvic ring appear s intact. Mild bilateral hip osseous hypertrophy compatible with osteoarthritis. Soft tissues: No suspicious soft tissue calcifications or masses. IMPRESSION: Mild bilateral hip osteoarthritis. Reviewed by: Marija Rust MD, PhD on 02/05/2021 10:18 AM PDT Approved by: Marija Rust MD, PhD on 02/05/2021 10:18 AM PDT Station ID: [id number]
== END 2021-02-04 23:59 | disposition home or self-care (01) ==
LOC: DI.N 17:27
PROVIDERS: ATTEND Family Medicine
DX: M25.551 Pain in right hip (principal); M25.552 Pain in left hip; M16.0 Bilateral primary osteoarthritis of hip

== ENCOUNTER 2021-02-14 08:00 | Outpatient (CLI) | payer MEDICARE | END 2021-02-14 23:59 | disposition home or self-care (01) | LOC: LAB.N 08:00 | PROVIDERS: ATTEND Family Medicine | DX: I48.91 Unspecified atrial fibrillation (principal); Z95.2 Presence of prosthetic heart valve; Z79.01 Long term (current) use of anticoagulants ==

== ENCOUNTER 2021-04-25 08:00 | Outpatient (CLI) | payer MEDICARE | END 2021-04-25 23:59 | disposition home or self-care (01) | LOC: LAB.N 08:00 | PROVIDERS: ATTEND Family Medicine | DX: Z95.2 Presence of prosthetic heart valve (principal); I48.91 Unspecified atrial fibrillation; Z79.01 Long term (current) use of anticoagulants ==

== ENCOUNTER 2021-05-23 08:00 | Outpatient (CLI) | payer MEDICARE | END 2021-05-23 23:59 | disposition home or self-care (01) | LOC: LAB.WCP 08:00 | PROVIDERS: ATTEND Family Medicine | DX: I48.91 Unspecified atrial fibrillation (principal); Z79.01 Long term (current) use of anticoagulants ==

== ENCOUNTER 2021-07-21 08:00 | Outpatient (CLI) | payer MEDICARE | END 2021-07-21 23:59 | disposition home or self-care (01) | LOC: LAB.N 08:00 | PROVIDERS: ATTEND Family Medicine | DX: I48.91 Unspecified atrial fibrillation (principal); Z79.01 Long term (current) use of anticoagulants ==

== ENCOUNTER 2021-09-22 08:00 | Outpatient (CLI) | payer MEDICARE | END 2021-09-22 23:59 | disposition home or self-care (01) | LOC: LAB.N 08:00 | PROVIDERS: ATTEND Family Medicine | DX: I48.91 Unspecified atrial fibrillation (principal); Z95.2 Presence of prosthetic heart valve; Z79.01 Long term (current) use of anticoagulants ==

== ENCOUNTER 2021-10-03 08:00 | Outpatient (CLI) | payer MEDICARE | END 2021-10-03 23:59 | disposition home or self-care (01) | LOC: LAB.N 08:00 | PROVIDERS: ATTEND Family Medicine | DX: I48.91 Unspecified atrial fibrillation (principal); Z95.2 Presence of prosthetic heart valve; Z79.01 Long term (current) use of anticoagulants ==

== ENCOUNTER 2021-11-19 08:00 | Outpatient (CLI) | payer MEDICARE | END 2021-11-19 23:59 | disposition home or self-care (01) | LOC: LAB.WCP 08:00 | PROVIDERS: ATTEND Family Medicine | DX: I48.91 Unspecified atrial fibrillation (principal); Z95.2 Presence of prosthetic heart valve ==

== ENCOUNTER 2021-11-24 08:00 | Outpatient (CLI) | payer MEDICARE | END 2021-11-24 23:59 | disposition home or self-care (01) | LOC: LAB.N 08:00 | PROVIDERS: ATTEND Family Medicine | DX: I48.91 Unspecified atrial fibrillation (principal); Z95.2 Presence of prosthetic heart valve; Z79.01 Long term (current) use of anticoagulants ==

== ENCOUNTER 2021-12-03 08:00 | Outpatient (CLI) | payer MEDICARE | END 2021-12-03 23:59 | disposition home or self-care (01) | LOC: LAB.N 08:00 | PROVIDERS: ATTEND Family Medicine | DX: I48.91 Unspecified atrial fibrillation (principal); Z95.2 Presence of prosthetic heart valve; Z79.01 Long term (current) use of anticoagulants ==

== ENCOUNTER 2021-12-19 08:00 | Outpatient (CLI) | payer MEDICARE | END 2021-12-19 23:59 | disposition home or self-care (01) | LOC: LAB.N 08:00 | PROVIDERS: ATTEND Family Medicine | DX: I48.91 Unspecified atrial fibrillation (principal); Z95.2 Presence of prosthetic heart valve; Z79.01 Long term (current) use of anticoagulants ==

== ENCOUNTER 2021-12-24 08:00 | Outpatient (CLI) | payer MEDICARE | END 2021-12-24 23:59 | disposition home or self-care (01) | LOC: LAB.N 08:00 | PROVIDERS: ATTEND Family Medicine | DX: I48.91 Unspecified atrial fibrillation (principal); Z95.2 Presence of prosthetic heart valve; Z79.01 Long term (current) use of anticoagulants ==

== ENCOUNTER 2023-03-01 17:09 | Outpatient (CLI) | payer MEDICARE | END 2023-03-01 17:10 | disposition short-term general hospital (02) | LOC: EMS 17:09 | DX: R06.00 Dyspnea, unspecified (principal) | CPT/HCPCS: A0425; A0427; A0888 ==

== ENCOUNTER 2023-05-27 07:53 | Outpatient (CLI) | payer MEDICARE | END 2023-05-27 07:54 | disposition EMS.NT | LOC: EMS 07:53 | DX: Z03.89 Encounter for observation for other suspected diseases and conditions ruled out (principal) ==

== ENCOUNTER 2023-06-11 11:51 | Outpatient (CLI) | payer MEDICARE | END 2023-06-11 23:59 | disposition critical access hospital (66) | LOC: EMS 11:51 | DX: R06.02 Shortness of breath (principal); R73.9 Hyperglycemia, unspecified; R47.81 Slurred speech; R29.810 Facial weakness; R53.1 Weakness | CPT/HCPCS: A0425; A0427 ==

== ENCOUNTER 2023-06-11 12:10 | Emergency (ER) | payer MEDICARE ==
--- NOTE | 2023-06-11 12:22 | ED Physician Documentation ---
PD HPI FOCAL NEURO - Stated complaint Stated Complaint: CODE STROKE - Chief complaint Chief Complaint: Neuro - History obtained from History obtained from: Patient, EMS - Additional information Additional information: 73-year-old woman with history of diabetes and A-fib on Coumadin presents with strokelike symptoms and dyspnea. Per EMS she was last known normal at noon yesterday. She called EMS today for chief complaint of dyspnea. History is difficult because she is altered. For example she does not know how long she has been short of breath and she does complain of chest pain of unclear acuity as well. EMS noted her to have severe left-sided deficits and she was brought in for that as well. Patient is not aware of the deficits so it is unclear when exactly this started but EMS states that family said she was normal yesterday at noon. 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 : None HEENT: Chronic vision loss Psych: Depression Musculoskeletal: None Derm: None - Past Surgical History Past Surgical History: Yes Cardiovascular: Pacemaker - Present Medications Home Medications: Ambulatory Orders Medication Instructions Recorded Confirmed Albuterol Sulfate [Proventil Hfa 1 - 2 puffs INH Q4H PRN #1 inhaler 12/15/17 Inhaler] Furosemide [Lasix] 40 mg PO DAILY #15 tablet 12/15/17 Metoprolol Tartrate 12/15/17 Nefazodone HCl 12/15/17 Potassium Chloride 40 meq PO DAILY #60 tablet.er 12/15/17 HYDROcod/ACETAM 5/325 [[place] 5/325] 1 ea PO TID #5 10/01/20 - Allergies Allergies/Adverse Reactions: Allergies Allergy/AdvReac Type Severity Reaction Status Date / Time acetaminophen [From Percocet] Allergy Unknown Verified 10/01/20 16:40 adhesive Allergy Unknown Verified 10/01/20 16:40 oxycodone [From Percocet] Allergy Unknown Verified 10/01/20 16:40 tegaderm Allergy Mild Rash Uncoded 10/01/20 16:40 - Social History Does the pt smoke?: Yes Smoking Status: Current every day smoker Does the pt drink ETOH?: No Does the pt have substance abuse?: No - Immunizations Immunizations are current?: Yes PD ED PE NORMAL - Vitals Vital signs reviewed: Yes - General General: Other (She is alert and oriented to person and place but not time or events.) - HEENT HEENT: PERRL. No: EOMI - Neck Neck: Supple, no meningeal sign, No bony TTP - Cardiac Cardiac: Other (Irregularly irregular without murmur) - Respiratory Respiratory: No respiratory distress, Clear bilaterally - Abdomen Abdomen: Non tender - Female Female : Other (Incontinent of urine) - Extremities Extremities: No calf tenderness / cord - Neuro Eye Opening: Spontaneous Motor: Obeys Commands Verbal: Confused GCS Score: 14 NIHSS - Time Time: 12:15 - Level of Consciousness Level of consciousness: (0) Alert, Keenly responsive LOC Questions: (2) Answers neither correct ("May" for month "I don't know" for year) LOC Commands: (0) Performs both correctly - Gaze Best Gaze: (2) Forced deviation (does not look left past midline) - Visual Visual: (2) Complete Hemianopia - Facial Palsy Facial Palsy: (3) Complete paralysis (of left) - Motor Arms (both separate) Motor Arm (right): (0) No drift Motor Arm (left): (4) No movement - Motor Legs (both separate) Motor Leg (right): (0) No drift Motor Leg (left): (4) No movement - Limb Ataxia Limb Ataxia: (0) Absent - Sensory Sensory: (2) Warbfo-eq-vvupc loss (no response to pain LUE, does say "ouch" to pain L face and LLE) - Best Language Best Language: (1) ncur-ls-goqyzvv - Dysarthria Dysarthria: (1) Lnxi-uy-winugrfy dysarthria - Extinction and Inattention (formally neg Extinction and inattention: (2) Profound margaret-inattention or extinction to more than one modality - Total Score/Results Total Score/Result: 23 Results - Vitals Vitals: Vital Signs - 24 hr 06/11/23 06/11/23 12:16 12:45 Temperature 36.5 C 36.5 C Heart Rate 106 H 106 H Respiratory 24 24 Rate Blood Pressure 101/86 H 101/86 H O2 Saturation 94 94 If not protocol 2 : Oxygen Flow, liters/minute Oxygen O2 Source Nasal cannula - EKG (time done) 1215 EKG releavant findings:: EKG personally interpreted by author of this note. Relevant findings are: Rate: Rate (enter#) (107) Rhythm: Sinus tachycardia [place]: RAD Intervals: Normal UT, Prolonged QT QRS: Normal Ischemia: Normal ST segments - Labs Labs: Laboratory Tests 06/11/23 06/11/23 06/11/23 12:22 12:23 12:30 WBC 28.3 H RBC 3.64 L Hgb 10.4 L Hct 33.1 L MCV 90.9 MCH 28.6 MCHC 31.4 L RDW 15.1 H Plt Count 155 MPV 12.4 H Neut # (Auto) 26.3 H Lymph # (Auto) 0.7 L Sharp # (Auto) 0.8 Eos # (Auto) 0.0 Baso # (Auto) 0.1 Absolute Nucleated RBC 0.00 Band Neuts % (Manual) Not Reportable Abnorm Lymph % (Manual) Not Reportable Nucleated RBC % 0.0 Neutrophils # (Manual) Not Reportable Lymphocytes # (Manual) Not Reportable Monocytes # (Manual) Not Reportable Eosinophils # (Manual) Not Reportable Basophils # (Manual) Not Reportable Differential Comment MANUAL=AUTO DIFF WBC Morphology NORMAL APPEARANCE Platelet Estimate NORMAL (130-450,000) Platelet Morphology NORMAL APPEARANCE RBC Morph Micro Appear NORMAL APPEARANCE PT INR VBG pH VBG pCO2 VBG pO2 VBG HCO3 VBG Total CO2 VBG O2 Saturation VBG Base Excess Sodium Potassium Chloride Carbon Dioxide Anion Gap BUN Creatinine Estimated GFR (MDRD) Glucose POC Whole Bld Glucose 457 H Lactic Acid Calcium Phosphorus Magnesium Total Bilirubin AST ALT Alkaline Phosphatase Troponin I High Sens Total Protein Albumin Globulin Albumin/Globulin Ratio Nasal Adenovirus (PCR) NOT DETECTED Nasal B. parapertussis DNA (PCR) NOT DETECTED Nasal Coronavir 229E PCR NOT DETECTED Nasal Coronavir HKU1 PCR NOT DETECTED Nasal Coronavir NL63 PCR NOT DETECTED Nasal Coronavir OC43 PCR NOT DETECTED Nasal Enterovir/Rhinovir PCR NOT DETECTED Nasal Influenza B PCR NOT DETECTED Nasal Influenza A PCR NOT DETECTED Nasal Parainfluen 1 PCR NOT DETECTED Nasal Parainfluen 2 PCR NOT DETECTED Nasal Parainfluen 3 PCR NOT DETECTED Nasal Parainfluen 4 PCR NOT DETECTED Nasal RSV (PCR) NOT DETECTED Nasal B.pertussis DNA PCR NOT DETECTED Nasal C.pneumoniae (PCR) NOT DETECTED Michael Human Metapneumo PCR NOT DETECTED Nasal M.pneumoniae (PCR) NOT DETECTED Nasal SARS-CoV-2 (PCR) NOT DETECTED Ethyl Alcohol Serum Ketones 06/11/23 06/11/23 06/11/23 12:30 12:30 12:30 WBC RBC Hgb Hct MCV MCH MCHC RDW Plt Count MPV Neut # (Auto) Lymph # (Auto) Sharp # (Auto) Eos # (Auto) Baso # (Auto) Absolute Nucleated RBC Band Neuts % (Manual) Abnorm Lymph % (Manual) Nucleated RBC % Neutrophils # (Manual) Lymphocytes # (Manual) Monocytes # (Manual) Eosinophils # (Manual) Basophils # (Manual) Differential Comment WBC Morphology Platelet Estimate Platelet Morphology RBC Morph Micro Appear PT 19.3 H INR 1.8 H VBG pH VBG pCO2 VBG pO2 VBG HCO3 VBG Total CO2 VBG O2 Saturation VBG Base Excess Sodium 130 L Potassium 4.1 Chloride 90 L Carbon Dioxide 22 Anion Gap 18.0 H BUN 22 H Creatinine 1.1 Estimated GFR (MDRD) 49 L Glucose 468 H POC Whole Bld Glucose Lactic Acid Calcium 8.5 Phosphorus 2.6 Magnesium 1.6 L Total Bilirubin 2.9 H AST 19 ALT 10 Alkaline Phosphatase 75 Troponin I High Sens 125.6 H* Total Protein 6.3 L Albumin 3.0 L Globulin 3.3 Albumin/Globulin Ratio 0.9 L Nasal Adenovirus (PCR) Nasal B. parapertussis DNA (PCR) Nasal Coronavir 229E PCR Nasal Coronavir HKU1 PCR Nasal Coronavir NL63 PCR Nasal Coronavir OC43 PCR Nasal Enterovir/Rhinovir PCR Nasal Influenza B PCR Nasal Influenza A PCR Nasal Parainfluen 1 PCR Nasal Parainfluen 2 PCR Nasal Parainfluen 3 PCR Nasal Parainfluen 4 PCR Nasal RSV (PCR) Nasal B.pertussis DNA PCR Nasal C.pneumoniae (PCR) Michael Human Metapneumo PCR Nasal M.pneumoniae (PCR) Nasal SARS-CoV-2 (PCR) Ethyl Alcohol < 10.0 Serum Ketones SMALL H 06/11/23 06/11/23 06/11/23 12:30 12:30 13:39 WBC RBC Hgb Hct MCV MCH MCHC RDW Plt Count MPV Neut # (Auto) Lymph # (Auto) Sharp # (Auto) Eos # (Auto) Baso # (Auto) Absolute Nucleated RBC Band Neuts % (Manual) Abnorm Lymph % (Manual) Nucleated RBC % Neutrophils # (Manual) Lymphocytes # (Manual) Monocytes # (Manual) Eosinophils # (Manual) Basophils # (Manual) Differential Comment WBC Morphology Platelet Estimate Platelet Morphology RBC Morph Micro Appear PT INR VBG pH 7.362 VBG pCO2 39.0 L VBG pO2 38.6 VBG HCO3 21.6 L VBG Total CO2 22.8 L VBG O2 Saturation 69.1 VBG Base Excess -3.4 L Sodium Potassium Chloride Carbon Dioxide Anion Gap BUN Creatinine Estimated GFR (MDRD) Glucose POC Whole Bld Glucose 440 H Lactic Acid 5.5 H* Calcium Phosphorus Magnesium Total Bilirubin AST ALT Alkaline Phosphatase Troponin I High Sens Total Protein Albumin Globulin Albumin/Globulin Ratio Nasal Adenovirus (PCR) Nasal B. parapertussis DNA (PCR) Nasal Coronavir 229E PCR Nasal Coronavir HKU1 PCR Nasal Coronavir NL63 PCR Nasal Coronavir OC43 PCR Nasal Enterovir/Rhinovir PCR Nasal Influenza B PCR Nasal Influenza A PCR Nasal Parainfluen 1 PCR Nasal Parainfluen 2 PCR Nasal Parainfluen 3 PCR Nasal Parainfluen 4 PCR Nasal RSV (PCR) Nasal B.pertussis DNA PCR Nasal C.pneumoniae (PCR) Michael Human Metapneumo PCR Nasal M.pneumoniae (PCR) Nasal SARS-CoV-2 (PCR) Ethyl Alcohol Serum Ketones - Rads (name of study) Noncontrast head CT without contraindication to tPA Relevant Findings:: Discussed with rads (Dr Sanchez at 1315), EMP independent interpretation of test CTA with right M1 MCA occlusion although images are limited Relevant Findings:: Discussed with rads (Dr. Barakat at 1322), EMP independent interpretation of test PD Medical Decision Making - ED course ED course: 73-year-old woman seen on arrival with significant strokelike symptoms although her chief complaint was shortness of breath. She has a fairly high stroke scale with devastating left-sided deficits consistent with a right MCA syndrome. Contraindications to tPA include anticoagulation with Coumadin with INR greater than 1.7 although it is only 1.8. And blood sugar also needs to be addressed and she was given IV fluids and IV insulin. Stroke code was called. Last known normal noon yesterday. On my "wet read" of her angiography it does look like she has a right M1 MCA occlusion. I called [facility] for transfer but there process is they need telestroke to make the call and I spoke with the telestroke physician as soon as she got back from CT. The remainder of her work-up demonstrates significant elevated white blood cell count of 28,000, venous blood gas without evidence of acidosis but she does have small serum ketones. Troponin is elevated as well. Dr Jake Echavarria MD, telestroke Physician has completed his evaluation as of 1:30 PM and agrees that she has a large vessel occlusion and is not a tPA candidate due to the above. He is working on getting her transferred for LVO. She is noted to have a significant white count, is tachycardic and has a lactic acidosis. I do not have a source per se at this time but given her critical illness seems reasonable to obtain blood cultures and give her presumptive broad-spectrum antibiotics. After the first 10 units of insulin and a liter of fluids her blood sugar only came down from 457 down to 440 and more fluids and insulin were ordered. I was notified a couple minutes after 2 PM that she was excepted by Dr. Seay to [facility]. [place] are completed and [facility] was activated for rapid transfer for LVO retrieval. - Critical Care Time(min): 45 Time Includes: Direct patient care, Review records, Reassess patient, Document care, Coordinate care, Medical consult, Family consult for tx dec Data interpretation: Labs, Pulse ox Procedures included in critical care time: Peripheral IV Procedures excluded from critical care time: EKG Departure - Departure Disposition: 02 Transfer Acute Care Hosp Clinical Impression: Occlusion, cerebral artery, On Coumadin for atrial fibrillation Cerebrovascular accident (CVA) Qualifiers: CVA mechanism: occlusion Precerebral and cerebral artery: middle cerebral artery Laterality of affected vessel: right Qualified Code(s): I63.511 - Cerebral infarction due to unspecified occlusion or stenosis of right middle cerebral artery Uncontrolled diabetes mellitus Qualifiers: Diabetes mellitus type: type 2 Glycemic state: with hyperglycemia Qualified Code(s): E11.65 - Type 2 diabetes mellitus with hyperglycemia Condition: Critical Forms: PCP List
[2023-06-11 12:24] VITALS: BP 101/86; O2SAT 94
[2023-06-11] MEDS ORDERED: INSULIN REGULAR HUMAN 300 UNIT/3 ML VIAL IVP STA ×2 (12:35→13:57)
[2023-06-11 12:40] LABS: BASOPHILS # (AUTO) 0.1 10^3/uL (0.0-0.1); BASOPHILS % (AUTO) 0.3 %; HCT - HEMATOCRIT 33.1 % (37.0-47.0); HGB - HEMOGLOBIN 10.4 g/dL (12.0-16.0); LYMPHOCYTES # (AUTO) 0.7 10^3/uL (1.5-3.5); LYMPHOCYTES % (AUTO) 2.5 %; MEAN CORPUSCULAR HEMOGLOBIN 28.6 pg (27.0-31.0); MEAN CORPUSCULAR HGB CONC 31.4 g/dL (32.0-36.0); MEAN CORPUSCULAR VOLUME 90.9 fL (81.0-99.0); MEAN PLATELET VOLUME 12.4 fL (7.9-10.8); MONOCYTES # (AUTO) 0.8 10^3/uL (0.0-1.0); MONOCYTES % (AUTO) 2.9 %; NEUTROPHILS # (AUTO) 26.3 10^3/uL (1.5-6.6); NEUTROPHILS % (AUTO) 92.7 %; PLT - PLATELET COUNT 155 10^3/uL (130-450); RED BLOOD COUNT 3.64 10^6/uL (4.20-5.40); RED CELL DISTRIBUTION WIDTH 15.1 % (12.0-15.0); VBG BASE EXCESS -3.4 mmol/L (-2 - +2); VBG HCO3 21.6 mmol/L (23-28); VBG OXYGEN SATURATION 69.1 % (60-80); VBG PH 7.362 (7.31-7.41); VBG PO2 38.6 mmHg (25-47); VBG TOTAL CO2 22.8 mmol/L (24-29); WHITE BLOOD COUNT 28.3 x10^3/uL (4.8-10.8)
[2023-06-11 12:45] LABS: INR 1.8 (0.8-1.2); PT - PROTHROMBIN TIME 19.3 secs (9.9-12.6)
[2023-06-11 12:53] LABS: ETOH - ETHANOL < 10.0 mg/dL; MAGNESIUM 1.6 mg/dL (1.7-2.3); PHOSPHORUS 2.6 mg/dL (2.5-5.0)
[2023-06-11 12:55] LABS: ALBUMIN/GLOBULIN RATIO 0.9 (1.0-2.2); ALKALINE PHOSPHATASE 75 IU/L (42-121); ALT ALANINE AMINOTRANSFERASE 10 IU/L (10-60); AST ASPARTATE AMINOTRANSFERASE 19 IU/L (10-42); BILIRUBIN,TOTAL 2.9 mg/dL (0.2-1.0); BUN - BLOOD UREA NITROGEN 22 mg/dL (6-20); CALCIUM 8.5 mg/dL (8.5-10.3); CARBON DIOXIDE - CO2 22 mmol/L (21-32); CHLORIDE 90 mmol/L (101-111); CREATININE 1.1 mg/dL (0.6-1.3); GFR - MDRD 49 (>89); GLUCOSE 468 mg/dL (74-104); POTASSIUM 4.1 mmol/L (3.5-4.5); SODIUM 130 mmol/L (135-145); TOTAL PROTEIN 6.3 g/dL (6.4-8.9)
[2023-06-11 13:01] LABS: KETONES, SERUM (ACETEST) SMALL (NEGATIVE)
[2023-06-11 13:16] LABS: PLATELET ESTIMATE, MANUAL NORMAL (130-450,000) (NORMAL); PLATELET MORPHOLOGY NORMAL APPEARANCE (NORMAL); RBC MORPHOLOGY (MULTIPLE) NORMAL APPEARANCE (NORMAL); WBC MORPHOLOGY (MULTIPLE) NORMAL APPEARANCE (NORMAL)
[2023-06-11 13:17] LABS: DIFFERENTIAL COMMENT MANUAL=AUTO DIFF
[2023-06-11 13:38] LABS: B. PARAPERTUSSIS- RESP PCR PAN NOT DETECTED; B. PERTUSSIS- RESP PCR PANEL NOT DETECTED; C. PNEUMONIAE- RESP PCR PANEL NOT DETECTED; CORONAVIRUS 229E-RESP PCR NOT DETECTED; CORONAVIRUS HKU1-RESP PCR NOT DETECTED; CORONAVIRUS NL63-RESP PCR NOT DETECTED; CORONAVIRUS OC43-RESP PCR NOT DETECTED; HUMAN METAPNEUMOVIRUS NOT DETECTED; INFLUENZA A- RESP PCR PANEL NOT DETECTED; INFLUENZA B - RESP PCR PANEL NOT DETECTED; M. PNEUMONIAE- RESP PCR PANEL NOT DETECTED; PARAINFLUENZA VIRUS 1 NOT DETECTED; PARAINFLUENZA VIRUS 2 NOT DETECTED; PARAINFLUENZA VIRUS 3 NOT DETECTED; PARAINFLUENZA VIRUS 4 NOT DETECTED; RHINOVIRUS/ENTEROVIRUS NOT DETECTED; RSV- RESP PCR PANEL NOT DETECTED; SARS-CoV-2 -RESP PCR PANEL NOT DETECTED
[2023-06-11] MEDS ORDERED: VANCOMYCIN INJ 1.75 GM in SODIUM CHLORIDE 0.9% 500 ML IV STA (13:52)
[2023-06-11] MEDS ORDERED: PIPERACILLIN/TAZOBACTAM 3.375 GM in SODIUM CHLORIDE 0.9% MINIBAG 100 ML IV STA (13:52)
[2023-06-11] MEDS ORDERED: SODIUM CHLORIDE 0.9% 1,000 ML IV STA (13:53)
[2023-06-11] MEDS ORDERED: iohexoL-300 100 ML VIAL IVP ONE (15:01)
--- NOTE | 2023-06-11 16:04 | CT Report ---
PROCEDURE: Head W/O Stroke Protocol INDICATIONS: Stroke symptoms with left-sided deficits TECHNIQUE: Noncontrast 4.5 mm thick angled axial sections acquired from the foramen magnum to the vertex, with c oronal reformats. For radiation dose reduction, the following was used: automated exposure control, adjustment of mA and/or kV according to patient size. COMPARISON: None. FINDINGS: Image quality: Excellent. CSF spaces: Basal cisterns are patent. No extra-axial fluid collections. Ventricles are normal in size and shape. Brain: No midline shift. No intracranial masses or hemorrhage. Sanchez-white matter interface is norm al. Skull and face: Calvarium and visualized facial bones are intact, without suspicious lesions. Sinuses: Visualized sinuses and mastoids are clear. IMPRESSION: 1. No acute intracranial findings. 2. Extensive findings likely associated with chronic microvascular ischemic changes. Findings were discussed with Dr. Griffin at 1:16 PM on 06/11/2023. This study fulfills neurological imaging criteria for inclusion or exclusion of acute stroke therapie s based on available published neurological imaging guidelines. Reviewed by: Jahaira Sanchez MD on 06/11/2023 1:16 PM PDT Approved by: Jahaira Sanchez MD on 06/11/2023 1:16 PM PDT Station ID: [id number]
--- NOTE | 2023-06-11 16:04 | CT Report ---
PROCEDURE: CT Angio Head/Neck INDICATIONS: Stroke symptoms with left-sided deficits TECHNIQUE: Pre-contrast 4.5 mm thick sections acquired from the foramen magnum to the vertex. After the adminis tration of intravenous contrast, 1 mm thick sections acquired from the aortic arch through the [place] of [place]. Post-contrast 4.5 mm thick sections then re-acquired from the foramen magnum to the vert ex. 3-dimensional glzrbky-brgjnojox-dyamdateek (MIP) and/or volume rendering reformats were acquired of the central intracranial vasculature and neck separately. For radiation dose reduction, the foll owing was used: automated exposure control, adjustment of mA and/or kV according to patient size. CONTRAST: Intravenous COMPARISON: FINDINGS: Image quality: This is a suboptimal study due to poor timing bolus and poor patient positioning. BRAI N: CSF spaces: Ventricles are normal in size and shape. Basal cisterns are patent. No extra-axial flu id collections. Brain: No midline shift. No intracranial bleeds or masses. There is volume loss greater than expect ed for patient age suggesting chronic microvascular ischemic changes. Sanchez-white matter interface rossy ears intact. Skull and face: Calvarium and facial bones appear intact, without suspicious lesions. Orbits appear normal. Sinuses: Sinuses and mastoids are clear. HEAD CT ANGIOGRAPHY: Anterior circulation: Atheromatous calcifications are present within the cavernous portions of the bi lateral internal carotid arteries with 50-75% stenosis. The bilateral anterior cerebral arteries are visualized and patent. The anterior communicating artery is not definitely visualized. The left MCA d emonstrates normal course and caliber. There is an abrupt cut off of the right MCA at the M1 segment. Diminutive flow is visualized distal to this cutoff (series 8/image 15 and series 7/image 876. Posterior circulation: Visualized portions of the vertebral arteries demonstrate normal caliber, and join to form a normal appearing basilar artery. Flow within the posterior cerebral arteries is norm al and symmetric. No aneurysms are seen. NECK CT ANGIOGRAPHY: Carotid system: The great vessels demonstrate a conventional anatomy as they arise from the aortic a rch. The origins of the common carotid arteries appear patent. The common carotid arteries demonstr ate normal caliber and courses. The bifurcation regions are both widely patent. The internal caroti d arteries demonstrate normal calibers and courses. Posterior circulation: The origins of the vertebral arteries both appear widely patent. The more hyde perior extracranial portions of both vertebral arteries also demonstrate normal courses and calibers. They join to form a normal appearing basilar artery. Soft tissues: Emphysematous changes are present at the bilateral apices. Visualized neck soft tissue s demonstrate no suspicious abnormalities. Bones: No suspicious bony lesions. Visualized cervical spine appears normally aligned. IMPRESSION: 1. Findings suspicious for acute occlusion of the right M1 segment as above. Only diminutive flow is visualized within the downstream right middle cerebral artery branches. Emergent neuro interventional consultation recommended. These findings were discussed with Dr. Griffin at 1:22 PM on 06/11/2023. 2. Moderate to high-grade stenosis within the cavernous portions of the bilateral internal carotid ar teries. The estimate of stenosis included in the report of the imaging study was calculated using the NASCET method Reviewed by: Jahaira Sanchze MD on 06/11/2023 1:27 PM PDT Approved by: Jahaira Sanchez MD on 06/11/2023 1:27 PM PDT Station ID: [id number]
--- NOTE | 2023-06-11 16:04 | XRAY Report ---
PROCEDURE: Chest 1 View X-Ray INDICATIONS: dyspnea TECHNIQUE: One view of the chest was acquired. COMPARISON: 05/21/2020 FINDINGS: Surgical changes and devices: Mechanical valve replacement, pacemaker.. Lungs and pleura: No pleural effusions or pneumothorax. Interstitial pulmonary edema. Patchy left ba silar atelectasis. Mediastinum: Mediastinal contours appear normal. Cardiomegaly. Bones and chest wall: No suspicious bony lesions. Overlying soft tissues appear unremarkable. IMPRESSION: Congestive heart failure exacerbation Reviewed by: Fernando Rojas MD on 06/11/2023 1:42 PM PDT Approved by: Fernando Rojas MD on 06/11/2023 1:42 PM PDT Station ID: [id number]
--- NOTE | 2023-06-12 12:10 | ED Physician Documentation ---
ED Addendum - Addendum Addendum: 06/12/23 12:10 Did receive a call from lab about a positive blood culture. Initially was just gram positive cocci. The PCR test is showing signs coagulase-negative staph which is a likely contaminant. There is also presence of a faecalis. The patient had been transferred for strokelike symptoms and large vessel occlusion. We will send this information to the receiving facility. I did talk with the nursing clean up supervisor and ER today who will do that.
== END 2023-06-11 14:37 | disposition short-term general hospital (02) ==
LOC: EDUNIT# → ED 12:10
DX: I63.511 Cerebral infarction due to unspecified occlusion or stenosis of right middle cerebral artery (principal); R29.723 NIHSS score 23; I48.91 Unspecified atrial fibrillation; E11.65 Type 2 diabetes mellitus with hyperglycemia; R78.81 Bacteremia; I10 Essential (primary) hypertension; J44.9 Chronic obstructive pulmonary disease, unspecified; F17.200 Nicotine dependence, unspecified, uncomplicated; Z79.01 Long term (current) use of anticoagulants; Z20.822 Contact with and (suspected) exposure to COVID-19; Z95.0 Presence of cardiac pacemaker; Z79.899 Other long term (current) drug therapy
CPT/HCPCS: 36415; 70450; 70496; 70498; 71045; 80053; 82009; 82803; 83605; 83735; 84100; 84484; 85025; 85610; 87040; 87077; 87150; 87181; 87633; 93005; 96374; 96375; 99285; 99291; G0480; J1815; J3370; Q9967; 80320